=== PATIENT | male | born 1950 ===

== ENCOUNTER 2017-10-12 15:20 | Inpatient (IN) | payer MEDICARE ==
[2017-10-12 15:51] VITALS: BMI 25.2
[2017-10-12] MEDS ORDERED: Loperamide HCl 2 MG CAP PO PRN (16:57)
[2017-10-12] MEDS ORDERED: Mag-Al Plus 1200 MG/1200 MG/120 MG/30 ML UDCUP PO PRN (16:57)
[2017-10-12] MEDS ORDERED: Meclizine HCl 25 MG TAB PO PRN (17:14)
[2017-10-12] MEDS ORDERED: Ondansetron ODT 4 MG TAB PO PRN (17:14)
[2017-10-12] MEDS: guaiFENesin/Codeine Phosphate 200 mg/20 mg 10 ml UD Cup PO PRN (18:11)
[2017-10-12] MEDS: Lactinex Tablet PO SCH (18:11)
[2017-10-12] MEDS: Magnesium Oxide 400 MG TAB PO SCH (20:24)
[2017-10-12] MEDS: Folic Acid 1 MG TAB PO SCH (20:24)
[2017-10-13 05:27] LABS: #Eosinphils 0.1 thou/uL (0.0-0.7); #Lymphocytes 1.3 thou/uL (1.20-3.40); #Monocytes 0.5 thou/uL (0.11-0.59); #Neutrophils 4.1 thou/uL (1.40-6.50); %Basophils 0.6 % (0.0-1.0); %Eosinophils 1.9 % (0.0-10.0); %Monocytes 7.6 % (0.0-10.0); Hemoglobin 7.7 g/dL (14.0-18.0); MDiff Complete? YES; Manual Diff?? NO; Mean Corpuscular HGB CONC 33.1 g/dL (32.0-36.0); Mean Corpuscular Hemoglobin 29.5 pg (27.0-31.0); Mean Platelet Volume 10.5 fL (7.4-10.4); PLT Morphology Comment Appears Decreased; Platelet Count 111 thou/uL (130-400); RBC Distribution Width 17.6 % (11.5-14.5); RBC Morphology Normal
[2017-10-13 05:45] LABS: ALT (SGPT) 11 U/L (8-55); AST (SGOT) 10 U/L (5-34); Albumin 2.6 g/dL (3.4-4.8); Alkaline Phosphatase 42 U/L (40-150); Anion Gap 9 mmol/L (10-20); BUN (Urea Nitrogen) 12 mg/dL (8.4-25.7); Bilirubin, Total 0.9 mg/dL (0.2-1.2); Calc. Creatinine Clearance 113 mL/min (70-130); Calcium 8.5 mg/dL (7.8-10.44); Carbon Dioxide 33 mmol/L (23-31); Chloride 100 mmol/L (98-107); Estimated GFR-MDRD Greater than 90; Globulin 4.1 g/dL (2.4-3.5); Glucose 109 mg/dL (80-115); Potassium 4.1 mmol/L (3.5-5.1); Protein, Total 6.7 g/dL (5.8-8.1); Sodium 138 mmol/L (136-145)
[2017-10-13] MEDS: Dronabinol 2.5 MG CAP PO SCH ×2 (08:22→17:10)
[2017-10-13] MEDS: Clopidogrel Bisulfate 75 MG TAB PO SCH (08:22)
[2017-10-13] MEDS: Furosemide 40 MG TAB PO SCH (08:22)
[2017-10-13] MEDS: Potassium Chloride 20 MEQ TAB PO SCH (08:22)
[2017-10-13] MEDS: Folic Acid 1 MG TAB PO SCH ×2 (08:22→19:55)
[2017-10-13] MEDS: Finasteride 5 MG TAB PO SCH (08:22)
[2017-10-13] MEDS: Aspirin 81 mg Enteric Coated Tablet PO SCH (08:22)
[2017-10-13] MEDS: Magnesium Oxide 400 MG TAB PO SCH ×2 (08:22→19:55)
[2017-10-13] MEDS: Lactinex Tablet PO SCH ×3 (08:23→17:10)
[2017-10-13] MEDS: Loratadine 10 MG TAB PO SCH (08:23)
--- NOTE | 2017-10-13 09:14 | RAD ---
CHEST 1 VIEW: Date: 10/13/17 HISTORY: Cough. COMPARISON: None. FINDINGS: There is moderate layering right pleural effusion. Interstitial prominence bilaterally. No pneumothor ax. Mild right upper lobe increased opacification relate to the left. Port catheter is present, tip poorly seen. IMPRESSION: 1. Layering right pleural effusion, as well as perihilar opacities and right upper lobe air space op acity may represent edema or infection. 2. Faint left upper lobe peripheral opacity. Follow-up recommended. POS: [facility]
--- NOTE | 2017-10-13 10:29 | HP ---
DATE OF ADMISSION: 10/12/[address] Rey Pichardo. HISTORY OF PRESENT ILLNESS: The patient is a 67-year-old white male with multiple medical problems, being followed by Dr. Pichardo and by his fitting room inspector, Dr. Aidan Sarkar. His past medical history inc ludes a recent admission to the hospital for acute cholecystitis, requiring cholecystostomy for treat ment, as he could not tolerate a cholecystectomy at that time. This has remained in place with no co mplications. However, during this hospitalization it was found that he has had a significant diarrhe a and abdominal pain for several weeks prior to that with significant weight loss of greater than 50 pounds. This did not resolve with a cholecystostomy, and it was felt therefore that he may have mese nteric insufficiency as agreed upon by the telegraphic service dispatcher and the fitting room inspector. He subsequently was admitted for staining over the superior mesenteric artery and celiac artery were done without com plications and with relief of the abdominal pain and improvement in the diarrhea. He had been placed on mechanical soft diet and had been taking Ensure supplements with no diarrhea and increasing stren gth. He has, as mentioned above, multiple other problems including significant coronary disease, sta tus post coronary artery bypass graft, peripheral vascular disease, status post left superior femoral artery and left popliteal artery angioplasty and stent placement and thrombectomy of the left tibiop eroneal trunk. His coronary disease has been treated with coronary bypass graft x4 in 1998 and angio plasty with stent placement in 1996 prior to that. A most recent catheterization in 2013 showed a 70 % blockage of the left main bypass and 56% blockage of the LAD block bypass, but the recent PET scan prior to his surgery, which shows small partially reversible defect and ischemia of the LAD and of th e RCA, elected to be treated medically. His peripheral vascular disease also found to have a carotid artery disease, status post stent to the left and right internal carotid artery and most recently in 08/2016. His past medical history is also remarkable for a recent onset of atrial fibrillation in 09/2016 after his cholecystostomy with rate control, but no anticoagulation, secondary to recurrent an emia and possibility of slow GI bleed as a complication of the anemia. He has underlying myelodyspla stic syndrome, requiring intermittent transfusion and has had problem with iron overload, but has bee n fairly stable recently with only one transfusion during this hospitalization. His past medical his tory is also remarkable for risk factors of hyperlipidemia, treated with pravastatin; hypertension, t reated with carvedilol, lisinopril, and aspirin; type 2 diabetes, which has resolved with his greater than 50-pound weight loss or at least has been controlled. Surgical history is also positive for ab dominal aortic aneurysm repair, greater than 10 years ago; small-bowel obstruction, status post lapar otomy. MEDICAL HISTORY: Also positive for testicular cancer many years ago with no recurrence. The above-m entioned myelodysplastic disorder being followed by Dr. Boss and now Dr. Leo, on Procrit and occasional transfusions. Degenerative disk disease, treated with epidural steroids by pain managemen t doctor. Type 2 diabetes with normal sugars, status post weight loss. The above-mentioned renal ca lculi, benign prostatic hypertrophy, diverticulosis, and one episode of diverticulitis in 07/2015. S leep apnea on CPAP, above-mentioned peripheral vascular disease of both legs and the abdominal aorta, hypertension, hyperlipidemia, coronary artery disease mentioned above, carotid artery stenosis, ment ioned above. New onset atrial fibrillation. PAST SURGICAL HISTORY: Positive for the above-mentioned aortic aneurysm repair, coronary artery bypa ss graft, right and left total knee replacements, 4 back surgeries. FAMILY MEDICAL HISTORY: Positive for hypertension and hyperlipidemia. SOCIAL HISTORY: He is multiple times and has 2 children. He has a past history of cigarett e smoking until 1999, nondrinker. ALLERGIES: He has no known allergies. MEDICATIONS: At this time include K-Dur 20 mEq daily, Protonix 40 mEq daily, Zofran 8 mg p.o. q.8 ho urs p.r.n., meclizine 12.5 mg 3 times daily as needed, magnesium oxide 400 mg twice daily, loratadine 10 mg daily, Robitussin as needed, Imodium as needed, furosemide 40 mg daily, Proscar 5 mg daily, fo lic acid 1 mg twice daily, dronabinol 2.5 mg twice daily, diltiazem 240 mg daily, Plavix 75 daily, as pirin, Ecotrin 81 mg daily, hand-held nebulizers with DuoNeb q.i.d. p.r.n., Maalox p.r.n., Floranex 2 tabs 3 times daily. REVIEW OF SYSTEMS: HEENT: At this time, he has no dizziness in the bed, no change in vision or hear ing, no hoarseness or dysphagia. Pulmonary: Denies any cough, sputum production, pneumonia, or whee zing. Cardiovascular: He denies any chest pain at this time. He has no shortness of breath at rest , but does have shortness of breath on minimal exertion. Has no palpitations at rest, but does have on exertion. He has no edema. Gastrointestinal: He has the above-mentioned history of recurrent ab dominal pain and diarrhea and nausea, which has improved, status post cholecystostomy and now even fu rther status post staining of his ischemic bowel with left superior mesenteric artery and celiac jacque ry. Genitourinary: He has nocturia x1 to 2, but no dysuria or hematuria. Musculoskeletal: He has diffuse weakness generally and also has chronic pain in his lower back and both knees, being followed by a pain physician. Neurologic: Denies localized numbness, weakness in arms or extremities. PHYSICAL EXAMINATION: VITAL SIGNS: The patient has blood pressure of 100/54, O2 sats 96%, respirations 24, pulse 79 and ir regular, afebrile. HEENT: Pupils are equal, round, and reactive to light and accommodation. Sclerae are anicteric. Co njunctivae pale. Oral mucous membranes well hydrated. NECK: Supple. No nodes or masses. JVP is not elevated. Carotids show bilateral bruits. LUNGS: Show decreased breath sounds in bases. CARDIAC EXAMINATION: There is an irregularly irregular rhythm. No gallops or murmurs. There is a m idline sternotomy scar. There is an S4. ABDOMEN: Soft, minimal tenderness in the epigastric right upper quadrant with a functioning cholecys tostomy tube draining dark fluid. SKIN/EXTREMITIES: Showed decreased skin turgor. No edema, clubbing, or cyanosis, and no decubitus. There is crepitance and stiffness of the knees. Tenderness to palpation of the back. NEUROLOGICAL: Shows diffuse generalized weakness, but no numbness, tingling in arms or extremities. LABORATORY DATA: Shows a white count 6000, hematocrit 23, hemoglobin 7.7. Sodium 138, potassium 4.1 , chloride 100, bicarbonate 33, BUN 12, creatinine 0.68, AST 10, ALT 11, albumin 2.6, globulin 4.1. ASSESSMENT: Patient is a 67-year-old white male with multiple medical problems including diffuse art eriosclerotic cardiovascular disease, status post stents in both legs, abdominal aortic aneurysm repa ir, bilateral carotid stents, coronary artery bypass graft and stenting, who has been found to have, 1. Significant ischemic colitis and bowel disease, which has responded with staining of the superior mesenteric and celiac artery with relief of his chronic abdominal pain and diarrhea and some improve ment in his weight and strength. He is admitted for continued strengthening and monitoring of his ab dominal pain and nausea treatment with dronabinol and slowly advancing diet. 2. He has had complications of new onset of atrial fibrillation with rapid ventricular response, whi ch has only been rate controlled and has been somewhat limiting his therapy. It will need to be katt tored closely. 3. His cholecystostomy will be continued in place until he is much stronger and he is ambulating int o the surgeon's office, Dr. Hernandez, after discharge. 4. Degenerative disk disease and joint disease. He will be treated only symptomatically and monitor ed during therapy. 5. His myelodysplastic syndrome may need to be addressed with another transfusion, as his hemoglobin is less than 8 at 7.7. It will be monitored closely and see how his therapy responds, and if it carlos ps less than 7, we will definitely transfuse and may transfuse now if his anemia limits his therapy a nd conditioning. 6. His type 2 diabetes has been treated with his weight loss and will be just monitored. His prognosis is guarded, because of multiple system problems, but he is a FULL CODE at this time.
[2017-10-13] MEDS: guaiFENesin/Codeine Phosphate 200 mg/20 mg 10 ml UD Cup PO PRN ×2 (17:11→22:46)
[2017-10-14] MEDS: guaiFENesin/Codeine Phosphate 200 mg/20 mg 10 ml UD Cup PO PRN ×3 (02:41→19:16)
[2017-10-14] MEDS ORDERED: Milk Of Magnesia 30 ML UDCUP PO PRN (07:06)
[2017-10-14] MEDS ORDERED: Docusate 100 MG CAP PO SCH (09:00)
[2017-10-14] MEDS: Aspirin 81 mg Enteric Coated Tablet PO SCH (09:03)
[2017-10-14] MEDS: Furosemide 40 MG TAB PO SCH (09:03)
[2017-10-14] MEDS: Clopidogrel Bisulfate 75 MG TAB PO SCH (09:03)
[2017-10-14] MEDS: Docusate 100 MG CAP PO SCH ×2 (09:03→20:32)
[2017-10-14] MEDS: Finasteride 5 MG TAB PO SCH (09:03)
[2017-10-14] MEDS: Loratadine 10 MG TAB PO SCH (09:03)
[2017-10-14] MEDS: Magnesium Oxide 400 MG TAB PO SCH ×2 (09:03→20:29)
[2017-10-14] MEDS: Lactinex Tablet PO SCH ×3 (09:03→16:49)
[2017-10-14] MEDS: Potassium Chloride 20 MEQ TAB PO SCH (09:03)
[2017-10-14] MEDS: Folic Acid 1 MG TAB PO SCH ×2 (09:03→20:31)
[2017-10-14] MEDS: Dronabinol 2.5 MG CAP PO SCH ×2 (09:03→16:50)
--- NOTE | 2017-10-14 18:52 | PRG ---
DATE OF SERVICE: 10/14/2017 SUBJECTIVE: The patient feels well, cooperating with therapy, tolerating diet well with minimal abdo jourdan pain and normal stool. No shortness of breath or chest pain. No palpitations. OBJECTIVE: VITAL SIGNS: Blood pressure is 138/63, pulse 88, temperature 95.6, respirations 22, O2 sats 94% on 3 liters. LUNGS: Clear. CARDIAC: Shows an irregularly irregular rhythm. ABDOMEN: Soft, nontender with cholecystostomy tube draining well. SKIN AND EXTREMITIES: Showed no edema, clubbing, or cyanosis. PT states that patient has standby as sistance, but did walk 80 feet today with no break. ASSESSMENT: 1. Resolving mesenteric ischemia, weight loss, and diarrhea, being followed by Speech Therapy who wi shes to start on VitalStim tolerating mechanical soft diet and supplements. No diarrhea. 2. Chronic atrial fibrillation with rate control and anticoagulation with no dyspnea or symptoms of lightheadedness or dizziness. 3. Chronic obstructive pulmonary disease, stable with no recent exacerbation. The patient is not on anticoagulation secondary to recurrent anemia and possible slow gastrointestinal bleed. 4. Recurrent anemia, caused also by myelodysplastic syndrome with occasional intermittent transfusio ns and iron overload with none required in the last 2 weeks and we will monitor closely. Most recent hemoglobin is stable. 5. Diabetes type 2, resolved with weight loss. 6. Severe peripheral vascular disease, asymptomatic. PLAN: 1. Continue PT/OT. 2. Monitor vital signs during therapy. Continue rate control with no anticoagulation of atrial fibr illation. 3. Continue to slowly advance diet and monitor with speech therapy or signs of aspirations or recurr ent intestinal ischemia.
[2017-10-15] MEDS: Clopidogrel Bisulfate 75 MG TAB PO SCH (07:41)
[2017-10-15] MEDS: Folic Acid 1 MG TAB PO SCH ×2 (07:41→20:56)
[2017-10-15] MEDS: Docusate 100 MG CAP PO SCH ×2 (07:41→20:56)
[2017-10-15] MEDS: Lactinex Tablet PO SCH ×3 (07:41→17:41)
[2017-10-15] MEDS: Potassium Chloride 20 MEQ TAB PO SCH (07:42)
[2017-10-15] MEDS: Loratadine 10 MG TAB PO SCH (07:42)
[2017-10-15] MEDS: Furosemide 40 MG TAB PO SCH (07:42)
[2017-10-15] MEDS: Finasteride 5 MG TAB PO SCH (07:43)
[2017-10-15] MEDS: Aspirin 81 mg Enteric Coated Tablet PO SCH (07:43)
[2017-10-15] MEDS: Dronabinol 2.5 MG CAP PO SCH ×2 (07:43→17:41)
[2017-10-15] MEDS: Magnesium Oxide 400 MG TAB PO SCH ×2 (07:43→20:56)
[2017-10-15] MEDS: guaiFENesin/Codeine Phosphate 200 mg/20 mg 10 ml UD Cup PO PRN ×3 (13:05→21:44)
--- NOTE | 2017-10-15 20:23 | PRG ---
DATE OF SERVICE: 10/15/2017 SUBJECTIVE: The patient feels well, lying in bed, states he is having no abdominal pain, no shortnes s of breath, no palpitation, did get up in chair today and has been exercising in the bed. OBJECTIVE: VITAL SIGNS: Blood pressure is 149/72, temperature 97.5, pulse 69, respirations 17, O2 sat 98% on 2 liters. LUNGS: Clear. Cardiac examination shows an irregularly irregular rhythm. ABDOMEN: Soft, nontender. Cholecystostomy tube functioning well. SKIN AND EXTREMITIES: Showed no edema. ASSESSMENT: 1. Resolving mesenteric ischemia with good oral intake, no diarrhea, on VitalStim and mechanical sof t diet. 2. Chronic atrial fibrillation with good rate control and anticoagulation. No dyspnea, palpitations , dizziness, lightheadedness. He is not on anticoagulation secondary to recurrent anemia and previou s gastrointestinal bleed. 3. Chronic obstructive pulmonary disease, stable. 4. Recurrent anemia most likely caused by myelodysplastic syndrome, asymptomatic at this time with l ast transfusion 2 weeks ago and hemoglobin 7.7 on admission and will repeat in the a.m. 5. Type 2 diabetes, resolved with weight loss. 6. Severe peripheral vascular disease, asymptomatic. PLAN: Continue PT, OT. Repeat CBC, base met in the a.m. Obtain and monitor vital signs during ther apy. Continue rate control and no anticoagulation. Continue speech therapy and dietary advancement per speech therapy.
[2017-10-16 05:51] LABS: Anion Gap 12 mmol/L (10-20); BUN (Urea Nitrogen) 13 mg/dL (8.4-25.7); Calc. Creatinine Clearance 103 mL/min (70-130); Calcium 8.8 mg/dL (7.8-10.44); Carbon Dioxide 31 mmol/L (23-31); Chloride 98 mmol/L (98-107); Estimated GFR-MDRD Greater than 90; Glucose 122 mg/dL (80-115); Potassium 3.5 mmol/L (3.5-5.1); Sodium 137 mmol/L (136-145)
[2017-10-16 05:52] LABS: #Basophils 0.1 thou/uL (0.0-0.2); #Eosinphils 0.2 thou/uL (0.0-0.7); #Lymphocytes 1.7 thou/uL (1.20-3.40); #Monocytes 0.7 thou/uL (0.11-0.59); %Basophils 0.7 % (0.0-1.0); %Eosinophils 2.5 % (0.0-10.0); %Lymphocytes 22.2 % (21.0-51.0); %Monocytes 8.9 % (0.0-10.0); %Neutrophils 65.8 % (42.0-75.0); Anisocytosis MODERATE=16-30 cells (100X) (0-5/hpf); Hemoglobin 7.6 g/dL (14.0-18.0); Hypochromia SLIGHT = 6-15 cells (100X) (0-5/hpf); MDiff Complete? YES; Mean Corpuscular HGB CONC 32.9 g/dL (32.0-36.0); Mean Corpuscular Hemoglobin 29.5 pg (27.0-31.0); Mean Corpuscular Volume 89.6 fl (80.0-94.0); Mean Platelet Volume 10.9 fL (7.4-10.4); Ovalocytes MODERATE= 6-15 cells (100X) (0-1/hpf); PLT Morphology Comment Appears Adequate; Platelet Count 129 thou/uL (130-400); RBC Distribution Width 19.1 % (11.5-14.5); Red Blood Cell (RBC) Count 2.58 mill/uL (4.70-6.10); Tear Drops SLIGHT = 2-5 cells (100X) (0-1/hpf); White Blood Cell (WBC) Count 7.6 thou/uL (4.8-10.8)
[2017-10-16] MEDS: Finasteride 5 MG TAB PO SCH (08:37)
[2017-10-16] MEDS: Potassium Chloride 20 MEQ TAB PO SCH (08:37)
[2017-10-16] MEDS: Clopidogrel Bisulfate 75 MG TAB PO SCH (08:37)
[2017-10-16] MEDS: Docusate 100 MG CAP PO SCH ×2 (08:37→20:40)
[2017-10-16] MEDS: Lactinex Tablet PO SCH ×3 (08:38→18:22)
[2017-10-16] MEDS: Aspirin 81 mg Enteric Coated Tablet PO SCH (08:38)
[2017-10-16] MEDS: Furosemide 40 MG TAB PO SCH (08:38)
[2017-10-16] MEDS: Loratadine 10 MG TAB PO SCH (08:38)
[2017-10-16] MEDS: Magnesium Oxide 400 MG TAB PO SCH ×2 (08:38→20:40)
[2017-10-16] MEDS: Folic Acid 1 MG TAB PO SCH ×2 (08:39→20:40)
[2017-10-16] MEDS: Dronabinol 2.5 MG CAP PO SCH ×2 (08:39→16:08)
[2017-10-16] MEDS: guaiFENesin/Codeine Phosphate 200 mg/20 mg 10 ml UD Cup PO PRN ×3 (12:04→20:42)
--- NOTE | 2017-10-16 19:01 | PRG ---
DATE OF SERVICE: 10/16/2017 SUBJECTIVE: The patient feels well except for recurrent cough both in supine, standing position with minimal sputum production. No chest pain or shortness of breath, no abdominal pain. OBJECTIVE: VITALS SIGNS: Temperature is 97.9, pulse 106, respirations 20, O2 sats 90% on 1 liter, 98% on 2 lite rs, blood pressure 149/78. LUNGS: Showed decreased breath sounds in the bases. CARDIAC: Shows irregular rhythm. No gallops or murmurs. ABDOMEN: Soft, nontender with a well-functioning cholecystostomy tube. LABORATORY DATA: White count 7600, hematocrit 23, hemoglobin is stable at 7.6. Sodium 137, potassiu m 3.5, chloride 98, bicarbonate 31, BUN 13, creatinine 0.74, glucose 122. ASSESSMENT: Stable atrial fibrillation, resolving cholecystitis, status post cholecystostomy resolvi ng mesenteric ischemia status post implants. Persistent cough, possibly due to chronic obstructive p ulmonary disease. PLAN: Chest x-ray with bilateral decubitus. Continue speech therapy, occupational therapy, physical therapy and mechanical soft diet.
--- NOTE | 2017-10-16 20:02 | RAD ---
PA AND LATERAL VIEWS OF THE CHEST WITH BILATERAL DECUBITUS VIEWS: History: Cough. CHF. Pleural effusions. FINDINGS: Patchy infiltrate in both lung bases, more prominent on the right. Small right effusion which does la fanny dependently on the decubitus view. No significant left effusion apparent on the decubitus view. IMPRESSION: Bibasilar infiltrates more prominent on the right with small right effusion. POS: [facility]
[2017-10-16] MEDS: Acetaminophen 500 MG TAB PO PRN (21:55)
[2017-10-17 05:41] LABS: ALT (SGPT) 9 U/L (8-55); AST (SGOT) 11 U/L (5-34); Alkaline Phosphatase 48 U/L (40-150); Anion Gap 11 mmol/L (10-20); BUN (Urea Nitrogen) 14 mg/dL (8.4-25.7); Bilirubin, Total 0.7 mg/dL (0.2-1.2); Calc. Creatinine Clearance 105 mL/min (70-130); Calcium 8.7 mg/dL (7.8-10.44); Carbon Dioxide 31 mmol/L (23-31); Chloride 99 mmol/L (98-107); Estimated GFR-MDRD Greater than 90; Globulin 4.3 g/dL (2.4-3.5); Glucose 119 mg/dL (80-115); Potassium 3.4 mmol/L (3.5-5.1); Protein, Total 7.3 g/dL (5.8-8.1); Sodium 138 mmol/L (136-145)
[2017-10-17] MEDS: Dronabinol 2.5 MG CAP PO SCH ×2 (07:36→16:44)
[2017-10-17] MEDS: Lactinex Tablet PO SCH ×3 (07:36→16:44)
[2017-10-17] MEDS: Furosemide 40 MG TAB PO SCH (07:36)
[2017-10-17] MEDS: Potassium Chloride 20 MEQ TAB PO SCH (09:09)
[2017-10-17] MEDS: Folic Acid 1 MG TAB PO SCH ×2 (09:09→20:30)
[2017-10-17] MEDS: Loratadine 10 MG TAB PO SCH (09:10)
[2017-10-17] MEDS: Finasteride 5 MG TAB PO SCH (09:10)
[2017-10-17] MEDS: Docusate 100 MG CAP PO SCH ×2 (09:10→20:30)
[2017-10-17] MEDS: Aspirin 81 mg Enteric Coated Tablet PO SCH (09:10)
[2017-10-17] MEDS: Clopidogrel Bisulfate 75 MG TAB PO SCH (09:10)
[2017-10-17] MEDS: Magnesium Oxide 400 MG TAB PO SCH ×2 (09:10→20:30)
[2017-10-17] MEDS: guaiFENesin/Codeine Phosphate 200 mg/20 mg 10 ml UD Cup PO PRN ×3 (13:46→22:32)
[2017-10-17] MEDS: Acetaminophen 500 MG TAB PO PRN (16:46)
--- NOTE | 2017-10-17 16:55 | PRG ---
DATE OF SERVICE: 10/17/2017 SUBJECTIVE: The patient states he feels weak, tired, still having persistent cough, no nausea, vomit ing, or chest pain. No diarrhea or vomiting. OBJECTIVE: VITAL SIGNS: Shows her pulse is 131, blood pressure 133/64, O2 sats 93% on 2 L. LUNGS: Show decreased breath sounds in the bases. ABDOMEN: Soft and nontender. Chest x-ray yesterday did show bibasilar infiltrates, more prominent on the right with small effusion . White count yesterday, however, was normal at 7.6 with hemoglobin of 7.6, hematocrit 23. ASSESSMENT: 1. Recurrent atrial fibrillation with rapid ventricular response despite taking high dose diltiazem. 2. Resolving cholecystitis with cholecystostomy tube in place. 3. Resolving by mesenteric ischemia status post stent. 4. Cough, possibly due to chronic obstructive pulmonary disease versus mild exacerbation of congesti ve heart failure. 5. Atrial fibrillation with rapid ventricular response. PLAN: Give extra dose of 60 mg of diltiazem a day, obtain EKG and continue 40 mg daily of Lasix.
[2017-10-18] MEDS ORDERED: Amiodarone 200 MG TAB PO SCH (09:00)
[2017-10-18] MEDS: Aspirin 81 mg Enteric Coated Tablet PO SCH (09:10)
[2017-10-18] MEDS: Clopidogrel Bisulfate 75 MG TAB PO SCH (09:11)
[2017-10-18] MEDS: Magnesium Oxide 400 MG TAB PO SCH ×2 (09:11→20:54)
[2017-10-18] MEDS: Lactinex Tablet PO SCH ×3 (09:11→16:48)
[2017-10-18] MEDS: Finasteride 5 MG TAB PO SCH (09:11)
[2017-10-18] MEDS: Loratadine 10 MG TAB PO SCH (09:11)
[2017-10-18] MEDS: Docusate 100 MG CAP PO SCH ×2 (09:11→20:54)
[2017-10-18] MEDS: Furosemide 40 MG TAB PO SCH (09:11)
[2017-10-18] MEDS: Folic Acid 1 MG TAB PO SCH ×2 (09:11→20:54)
[2017-10-18] MEDS: Dronabinol 2.5 MG CAP PO SCH ×2 (09:12→16:48)
[2017-10-18] MEDS: Potassium Chloride 20 MEQ TAB PO SCH (09:12)
[2017-10-18] MEDS ORDERED: Carvedilol 25 MG TAB PO SCH (13:30)
[2017-10-18] MEDS: guaiFENesin/Codeine Phosphate 200 mg/20 mg 10 ml UD Cup PO PRN (17:40)
--- NOTE | 2017-10-18 20:51 | PRG ---
DATE OF SERVICE: 10/18/2017 SUBJECTIVE: The patient feels weak with cough, but no real shortness of breath or chest pain or palp itations. OBJECTIVE: VITAL SIGNS: Blood pressure 150/74, pulse 145 and irregular, respirations 18, O2 saturation is 97%. LUNGS: Show decreased breath sounds at bases. CARDIAC: Shows an irregularly irregular rhythm. ABDOMEN: Soft, nontender. Cholecystostomy tube functioning well. ASSESSMENT: 1. Recurrent atrial fibrillation with rapid ventricular rate. After discussion with Dr. Sarkar, his solar installation manager, we will add carvedilol 25 twice daily in addition to diltiazem to see if this will con trol his rate and to continue with his therapy. 2. Continue cholecystostomy drainage. 3. Continue to monitor oral intake and patient status post mesenteric ischemia with stents. PLAN: Carvedilol 25 twice daily, continue diltiazem 240 daily. Restart PT, OT in the morning. Repe at chest x-ray, EKG in the a.m. Repeat CBC and base met profile in the a.m.
[2017-10-19] MEDS: guaiFENesin/Codeine Phosphate 200 mg/20 mg 10 ml UD Cup PO PRN (00:47)
[2017-10-19] MEDS: Nitroglycerin 0.4 MG TAB (25 Tab Bottle) ONE ×3 (05:33→05:48)
[2017-10-19 05:53] LABS: #Basophils 0.1 thou/uL (0.0-0.2); #Eosinphils 0.2 thou/uL (0.0-0.7); #Lymphocytes 1.4 thou/uL (1.20-3.40); #Monocytes 0.6 thou/uL (0.11-0.59); #Neutrophils 5.4 thou/uL (1.40-6.50); %Lymphocytes 18.7 % (21.0-51.0); %Monocytes 7.5 % (0.0-10.0); %Neutrophils 70.7 % (42.0-75.0); Anisocytosis MODERATE=16-30 cells (100X) (0-5/hpf); Elliptocytes SLIGHT = 2-5 cells (100X) (0-1/hpf); Hemoglobin 7.3 g/dL (14.0-18.0); Hypochromia SLIGHT = 6-15 cells (100X) (0-5/hpf); MDiff Complete? YES; Mean Corpuscular HGB CONC 32.9 g/dL (32.0-36.0); Mean Corpuscular Hemoglobin 30.1 pg (27.0-31.0); Mean Corpuscular Volume 91.6 fl (80.0-94.0); Mean Platelet Volume 10.6 fL (7.4-10.4); Microcytosis SLIGHT = 6-15 cells (100X) (0-5/hpf); Ovalocytes SLIGHT = 2-5 cells (100X) (0-1/hpf); Platelet Count 140 thou/uL (130-400); RBC Distribution Width 20.8 % (11.5-14.5); Red Blood Cell (RBC) Count 2.41 mill/uL (4.70-6.10); White Blood Cell (WBC) Count 7.6 thou/uL (4.8-10.8)
[2017-10-19 06:06] LABS: ALT (SGPT) 8 U/L (8-55); AST (SGOT) 10 U/L (5-34); Albumin 2.9 g/dL (3.4-4.8); Alkaline Phosphatase 45 U/L (40-150); Anion Gap 11 mmol/L (10-20); BUN (Urea Nitrogen) 15 mg/dL (8.4-25.7); Bilirubin, Total 0.7 mg/dL (0.2-1.2); CKMB 0.4 ng/mL (0-6.6); Calc. Creatinine Clearance 98 mL/min (70-130); Calcium 8.9 mg/dL (7.8-10.44); Carbon Dioxide 31 mmol/L (23-31); Chloride 99 mmol/L (98-107); Estimated GFR-MDRD Greater than 90; Globulin 4.2 g/dL (2.4-3.5); Glucose 115 mg/dL (80-115); Potassium 4.3 mmol/L (3.5-5.1); Protein, Total 7.1 g/dL (5.8-8.1); Sodium 137 mmol/L (136-145); Troponin I Less than 0.010 ng/mL (< 0.028)
[2017-10-19] MEDS ORDERED: Sodium Chloride 0.9% 50 ML ONE (06:06)
[2017-10-19] MEDS ORDERED: Furosemide 40 MG/4 ML VIAL SLOW IVP SCH (07:00)
--- NOTE | 2017-10-19 07:18 | DIS ---
DATE OF TRANSFER TO [facility] EMERGENCY ROOM: 10/19/2017 FINAL DIAGNOSES: 1. Exacerbation of congestive heart failure secondary to atrial fibrillation, rapid ventricular resp onse. 2. Right lower lobe pneumonia. 3. Mesenteric ischemia status post angioplasty with resolution of diarrhea and abdominal pain. 4. Cholecystitis with resolution of symptoms status post cholecystostomy. 5. Myelodysplastic syndrome with chronic anemia with no transfusion for several weeks. 6. Hypertension. 7. Type 2 diabetes. 8. Peripheral vascular disease. 9. Status post abdominal aortic aneurysm repair. 10. Above-mentioned mesenteric ischemia. 11. Carotid artery disease status post bilateral stents and coronary disease. 12. Coronary artery disease, status post coronary bypass graft 1998 and angioplasty prior to that recent catheterization showing 70% blockage of the left main bypass and 50% [facility] of the [facility] HOSPITAL COURSE: The patient is a very pleasant 67-year-old white male with history of multiple medi jennifer problems, patient of Dr. Pichardo and Dr. Aidan Sarkar, who was admitted to the skilled unit on after an admission to [facility] for abdominal pain and diarrhea, felt to be due to mesenteric ischemia, treated with stents to the celiac and superior mesenteric artery with relief of abdominal pain and resolution of diarrhea. He, however, had become very weak and was unab le to maintain ADLs and was transferred to [place] skilled unit for physical therapy. He had complica tions prior to admission to [place] of new onset of atrial fibrillation with rapid ventricular respons e which had been rate controlled minimally with carvedilol and diltiazem, but the carvedilol was disc ontinued prior to transfer. He also has had complications in the distant past of peripheral vascular disease and coronary artery disease, but has been electively treated medically. He also had recentl y had an acute cholecystitis which was treated only with cholecystostomy and has a functioning cholec ystostomy tube in place and finally has had a history of underlying myelodysplastic syndrome requiri ng intermittent transfusions with last transfusion several weeks ago. On admission, his laboratory showed him to have a hemoglobin of 7.7 with hematocrit 23, white count 6 000. His BUN was 12, creatinine 0.68, albumin was 2.6. He was started on physical therapy felt fair ly well. His chest x-ray at that time did show resolving right lower lobe infiltrate and some mild p ulmonary congestion. He was not on antibiotics as he has finished a course prior to transfer. For t he first 2 days he did fairly well, but there was no therapy as it was the weekend. In the next ivonne ral days he was started on physical therapy and started to ambulate, was doing somewhat better, but dylan osorio developed a cough and was found to be having more rapid ventricular response of his chronic atria l fibrillation with rate going up to 130-145. Dr. Sarkar was consulted over the phone and instructed to place the patient back on his carvedilol in addition the diltiazem 240 mg daily that he was trans ferred on. This was done initially, his rate did go down somewhat to 93-113, remained fairly stable for the next several hours, but then the next morning awakened with chest pressure and tightness. EK G showed no acute changes, only atrial fibrillation. Chest x-ray did, however, show some increasing pulmonary congestion, possibly increasing right lower lobe infiltrate. Cardiac enzymes were normal. His examination showed him to have the above-mentioned atrial fibrillation with rapid ventricular re sponse at a rate of 93, O2 sat was 97%, but he was requiring 3 liters, blood pressure was 124/70. H owever, he rated his pressure as 8/10 that he had not had recently. This was treated with nitroglyce rin x3 with no relief and subsequently with morphine 2 mg with no relief. He appeared to be in no te rrible distress, but states that he was feeling like he was having heaviness in his chest. It was th erefore felt that he required transfer to [facility] for a more specialized evalu ation by Cardiology for possible intervention of his coronary disease and IV diltiazem to control his rate and possibly ablation. Therefore, he will be transferred to [facility] per ambulance.
--- NOTE | 2017-10-19 07:45 | RAD ---
SINGLE VIEW OF THE CHEST: COMPARISON: 10/13/17. HISTORY: Chest pain. FINDINGS: A single view of the chest shows an enlarged cardiomediastinal silhouette. A MediPort is seen with i ts tip in the superior vena cava. The patient is status post sternotomy or CABG. There is obscurity of the right hemidiaphragm which may represent a small right lower lobe infiltrate. IMPRESSION: 1. Right lower lobe infiltrate. 2. Cardiomegaly. POS: [facility]
[2017-10-19] MEDS ORDERED: Carvedilol 25 MG TAB PO SCH (08:00)
[2017-10-19 08:13] VITALS: BP 126/80; TEMP 96.5
[2017-10-19] MEDS: Finasteride 5 MG TAB PO SCH (08:46)
[2017-10-19] MEDS: Clopidogrel Bisulfate 75 MG TAB PO SCH (08:47)
[2017-10-19] MEDS: Furosemide 40 MG TAB PO SCH (08:47)
[2017-10-19] MEDS: Magnesium Oxide 400 MG TAB PO SCH (08:47)
[2017-10-19] MEDS: Folic Acid 1 MG TAB PO SCH (08:47)
[2017-10-19] MEDS: Loratadine 10 MG TAB PO SCH (08:47)
[2017-10-19] MEDS: Lactinex Tablet PO SCH (08:47)
[2017-10-19] MEDS: Potassium Chloride 20 MEQ TAB PO SCH (08:47)
[2017-10-19] MEDS: Docusate 100 MG CAP PO SCH ×2 (08:47→09:03)
[2017-10-19] MEDS: Aspirin 81 mg Enteric Coated Tablet PO SCH (08:54)
[2017-10-19] MEDS: Dronabinol 2.5 MG CAP PO SCH (08:55)
== END 2017-10-19 09:00 | disposition short-term general hospital (02) | DRG 308 ==
LOC: NAV ACUTE 15:20
PROVIDERS: ADMIT Internal Medicine; ATTEND Internal Medicine
DX: I48.2 Chronic atrial fibrillation (principal); K55.059 Acute (reversible) ischemia of intestine, part and extent unspecified; J18.9 Pneumonia, unspecified organism; K55.9 Vascular disorder of intestine, unspecified; I11.0 Hypertensive heart disease with heart failure; E11.51 Type 2 diabetes mellitus with diabetic peripheral angiopathy without gangrene; I50.9 Heart failure, unspecified; K81.9 Cholecystitis, unspecified; J44.9 Chronic obstructive pulmonary disease, unspecified; D46.9 Myelodysplastic syndrome, unspecified; I25.10 Atherosclerotic heart disease of native coronary artery without angina pectoris; Z95.1 Presence of aortocoronary bypass graft; Z95.5 Presence of coronary angioplasty implant and graft; Z85.47 Personal history of malignant neoplasm of testis; Z79.01 Long term (current) use of anticoagulants
CPT/HCPCS: 36415; 71045; 71048; 80048; 80053; 82553; 84484; 85025; A4216; G8978-GP-CL; G8979-GP-CJ; G8996-GN-CL; G8997-GN-CI; J1940; J2270; J7620; Q0162; Q0167